=== PATIENT | female | born 1945 | race Caucasian/White ===

== ENCOUNTER 2017-08-02 22:39 | Emergency (ER) | payer OTHER ==
[~2017-08-02] VITALS: Ht 162.6 cm; Wt 56.7 kg
[~2017-08-02 22:39] MED LIST: ? HTN MED; ALBU90OI INH; AMLO5 PO; ASPI325; ASPI81CH PO; ATOR20 PO; ATOR40TA PO; BENA20 PO; BENAML20/5; BENTYL20 MG PO; BLACK COHOSH; BREO ELLIPTA 11 EACH IH; BUPR150T2; CELEXA PO; CEPH500; CITA20; CITA20 PO; CLONIDINE1 EAC1 TD; CLOP75 PO; Calcium 250+D1 EACH PO; DULO60 PO; ESCI5 PO; ESOM20 PO; ESTR2; FOLI1 PO; FURO20; FURO40 PO; HYDSUL200; HYDSUL200 PO; IBUP800; LEVFLO500 PO; LISI5 PO; LOSA50 PO; MELO7.5 PO; METHOTREXATE INJ; METO100ER PO; METO50 PO; METR500 PO; METTREX2.5 PO; METTREX2.5 SQ; MULVITMINE; NITR.3SL SL; OMEP20ER PO; OXAP600 PO; OXYACE5T PO; PANT40 PO; POTCHL10ER PO; POTCHL20ER; PRED5; SPIR25 PO; SUCR1 PO; TRAACE PO; VALA500 PO; VALS80; VARE1 PO; VERA100; XELJANZ5 MG PO; [UNRECOGNIZED DRUG - OTHER]
== END 2017-08-03 00:50 | disposition home or self-care (01) ==
LOC: ER 22:39
DX: R04.0 Epistaxis (principal); I10 Essential (primary) hypertension; I25.10 Atherosclerotic heart disease of native coronary artery without angina pectoris; F32.9 Major depressive disorder, single episode, unspecified; Z88.2 Allergy status to sulfonamides; Z88.8 Allergy status to other drugs, medicaments and biological substances; Z79.899 Other long term (current) drug therapy; Z79.82 Long term (current) use of aspirin
CPT/HCPCS: 99282

== ENCOUNTER 2017-08-12 20:49 | Inpatient (IN) | payer OTHER ==
[~2017-08-12] VITALS: Ht 162.6 cm; Wt 56.4 kg
[2017-08-12 21:55] LABS: BASOPHILS ABSOLUTE AUTO 0.03 K/mm3 (0.00-0.23); BASOPHILS PERCENT AUTO 1 % (0-2); EOSINOPHILS ABSOLUTE AUTO 0.01 K/mm3 (0.00-0.68); EOSINOPHILS PERCENT AUTO 0 % (0-6); Hematocrit 28.4 % (33.0-51.0); Hemoglobin 8.8 g/dL (11.5-16.0); IMMATURE GRAN ABSOLUTE AUTO 0.01 K/mm3 (0.00-0.10); IMMATURE GRAN PERCENT AUTO 0 % (0-1); LYMPHOCYTES ABSOLUTE AUTO 1.37 K/mm3 (0.84-5.20); LYMPHOCYTES PERCENT AUTO 24 % (21-46); MONOCYTES PERCENT AUTO 20 % (4-13); Mean Corpuscular HGB 27.2 pg (26.0-34.0); Mean Corpuscular Volume 88 fL (80-100); Mean Platelet Volume 10.7 fL (9.1-12.4); NEUTROPHILS ABSOLUTE AUTO 3.11 K/mm3 (1.96-9.15); NEUTROPHILS PERCENT AUTO 55 % (41-73); Platelet Count 342 K/mm3 (150-400); RDW Standard Deviation 51.9 fL (35.1-46.3); Red Blood Cell Count 3.24 M/mm3 (3.80-5.20); White Blood Cell Count 5.63 K/mm3 (4.00-11.30)
[2017-08-12 22:10] LABS: Albumin, Blood 2.6 g/dL (3.4-5.0); Albumin/Globulin Ratio 0.6 (0.8-1.8); Bilirubin, Total 0.2 mg/dL (0.1-1.0); Bun/Creatinine Ratio 16.7 (12.0-20.0); Calcium, Blood 7.8 mg/dL (8.5-10.1); Creatinine, Blood 1.02 mg/dL (0.40-1.00); Globulin, Blood 4.4 g/dL (2.2-4.0); Potassium, Blood 3.4 mmol/L (3.5-5.5)
[2017-08-12 23:24] LABS: Influenza A Negative (NEGATIVE); Influenza B Negative (NEGATIVE)
[2017-08-12 23:25] LABS: Source, Urine Clean Catch
[2017-08-12 23:27] LABS: Blood, Urine 2+ (Neg); Glucose Qualitative, Urine Neg (Neg); Ketones, Urine 1+ (Neg); Leukocyte Esterase, Urine 2+ (Neg); Nitrite, Urine Pos (Neg); Protein, Urine 3+ (Neg); Specific Gravity, Urine 1.025 (1.003-1.022); Urobilinogen, Urine 2+ (Normal)
[2017-08-12 23:42] LABS: Appearance, Urine Cloudy (Clear); Bilirubin, Urine 1+ (Neg); Color, Urine Amber (P-Yellow)
[2017-08-12 23:44] LABS: Amorphous Light (0-Heavy); Bacteria Many /hpf; Mucus Light (0-Heavy); Squamous Epithelial Cells Few /hpf (Few); White Blood Cells, Urine 25-50 /hpf (0-5)
[2017-08-13 00:18] LABS: International Normalized Ratio 1.09; Prothrombin Time Results 11.4 Sec (9.7-11.5)
[2017-08-13 06:28] LABS: Hematocrit 28.1 % (33.0-51.0); Hemoglobin 8.7 g/dL (11.5-16.0)
[2017-08-14 04:29] LABS: BASOPHILS ABSOLUTE AUTO 0.02 K/mm3 (0.00-0.23); BASOPHILS PERCENT AUTO 0 % (0-2); EOSINOPHILS ABSOLUTE AUTO 0.02 K/mm3 (0.00-0.68); EOSINOPHILS PERCENT AUTO 0 % (0-6); Hematocrit 28.2 % (33.0-51.0); Hemoglobin 8.6 g/dL (11.5-16.0); IMMATURE GRAN ABSOLUTE AUTO 0.01 K/mm3 (0.00-0.10); IMMATURE GRAN PERCENT AUTO 0 % (0-1); LYMPHOCYTES ABSOLUTE AUTO 1.87 K/mm3 (0.84-5.20); LYMPHOCYTES PERCENT AUTO 39 % (21-46); MONOCYTES PERCENT AUTO 12 % (4-13); Mean Corpuscular HGB 27.3 pg (26.0-34.0); Mean Corpuscular HGB Conc 30.5 g/dL (31.5-36.5); Mean Corpuscular Volume 90 fL (80-100); Mean Platelet Volume 10.2 fL (9.1-12.4); NEUTROPHILS ABSOLUTE AUTO 2.32 K/mm3 (1.96-9.15); NEUTROPHILS PERCENT AUTO 48 % (41-73); Platelet Count 308 K/mm3 (150-400); RDW Coefficient Variation 16.2 % (11.7-14.2); RDW Standard Deviation 53.1 fL (35.1-46.3); Red Blood Cell Count 3.15 M/mm3 (3.80-5.20); White Blood Cell Count 4.84 K/mm3 (4.00-11.30)
[2017-08-14 09:15] LABS: Percent Saturation 5.6 % (15.0-50.0)
[2017-08-14 13:16] LABS: Hematocrit 26.7 % (33.0-51.0)
[2017-08-14] MEDS ORDERED: DULERA 200 MCG/13 GM INH (14:38)
[2017-08-14] MEDS ORDERED: OLAN7.5 PO (14:39)
[2017-08-14] MEDS ORDERED: SERT100 PO (14:39)
== END 2017-08-14 15:20 | disposition home or self-care (01) | DRG 812 ==
LOC: ER 20:49 → ERHOLD 20:50 → PCU 08-13 05:39 → ERHOLD 08-13 15:05 → PCU 08-13 15:05
PROVIDERS: Emergency Medicine; Family Medicine; Hospitalist; Internal Medicine Gastroenterology
DX: D62 Acute posthemorrhagic anemia (principal); J44.9 Chronic obstructive pulmonary disease, unspecified; E78.5 Hyperlipidemia, unspecified; N39.0 Urinary tract infection, site not specified; F17.200 Nicotine dependence, unspecified, uncomplicated; F32.9 Major depressive disorder, single episode, unspecified; I10 Essential (primary) hypertension; I25.2 Old myocardial infarction; R04.0 Epistaxis; M06.9 Rheumatoid arthritis, unspecified; I25.10 Atherosclerotic heart disease of native coronary artery without angina pectoris; G89.4 Chronic pain syndrome; Z79.899 Other long term (current) drug therapy; Z79.82 Long term (current) use of aspirin; Z96.651 Presence of right artificial knee joint; Z95.5 Presence of coronary angioplasty implant and graft; Z85.828 Personal history of other malignant neoplasm of skin; Z88.2 Allergy status to sulfonamides; Z88.8 Allergy status to other drugs, medicaments and biological substances; Z91.048 Other nonmedicinal substance allergy status
CPT/HCPCS: 36415; 71046; 80053; 81001; 82272; 82728; 83540; 83550; 85014; 85018; 85025; 85610; 85730; 86850; 86900; 86901; 86920; 87077; 87086; 87186; 87804; 93005; 93010; 94640; 94760; 96360; 96361; 99285; J1956; J7030

== ENCOUNTER 2017-10-12 12:45 | Emergency (ER) | payer OTHER ==
[~2017-10-12] VITALS: Ht 162.6 cm; Wt 55.8 kg
[~2017-10-12 12:45] MED LIST changes: +DULERA 200 MCG/13 GM INH; +OLAN7.5 PO; +SERT100 PO
[2017-10-12] MEDS ORDERED: BRIO INHALER (13:34)
[2017-10-12] MEDS ORDERED: CEPH500 PO (13:53)
[2017-10-12] MEDS ORDERED: DOXY100T53 PO (13:53)
== END 2017-10-12 14:04 | disposition home or self-care (01) ==
LOC: ER 12:45
DX: L02.412 Cutaneous abscess of left axilla (principal); I10 Essential (primary) hypertension; F32.9 Major depressive disorder, single episode, unspecified; I25.2 Old myocardial infarction; F17.210 Nicotine dependence, cigarettes, uncomplicated; Z88.8 Allergy status to other drugs, medicaments and biological substances; Z88.2 Allergy status to sulfonamides; Z79.899 Other long term (current) drug therapy; Z86.14 Personal history of Methicillin resistant Staphylococcus aureus infection
CPT/HCPCS: 10060; 99283

== ENCOUNTER 2018-03-08 01:26 | Inpatient (IN) | payer OTHER ==
[~2018-03-08] VITALS: Ht 162.6 cm; Wt 54.2 kg
[~2018-03-08 01:26] MED LIST changes: +BRIO INHALER; +CEPH500 PO; +DOXY100T53 PO
[2018-03-08] MEDS ORDERED: FOLI1 PO (01:47)
[2018-03-08] MEDS ORDERED: LEFL20 PO (01:48)
[2018-03-08 01:53] LABS: BASOPHILS ABSOLUTE AUTO 0.05 K/mm3 (0.00-0.23); BASOPHILS PERCENT AUTO 0 % (0-2); EOSINOPHILS PERCENT AUTO 0 % (0-6); Hematocrit 31.4 % (33.0-51.0); IMMATURE GRAN ABSOLUTE AUTO 0.15 K/mm3 (0.00-0.10); IMMATURE GRAN PERCENT AUTO 1 % (0-1); LYMPHOCYTES ABSOLUTE AUTO 0.99 K/mm3 (0.84-5.20); LYMPHOCYTES PERCENT AUTO 5 % (21-46); MONOCYTES PERCENT AUTO 7 % (4-13); Mean Corpuscular HGB 24.8 pg (26.0-34.0); Mean Corpuscular HGB Conc 31.8 g/dL (31.5-36.5); Mean Corpuscular Volume 78 fL (80-100); Mean Platelet Volume 10.2 fL (9.1-12.4); NEUTROPHILS ABSOLUTE AUTO 18.67 K/mm3 (1.96-9.15); NEUTROPHILS PERCENT AUTO 88 % (41-73); Platelet Count 420 K/mm3 (150-400); RDW Coefficient Variation 17.7 % (11.7-14.2); RDW Standard Deviation 50.3 fL (35.1-46.3); Red Blood Cell Count 4.03 M/mm3 (3.80-5.20); Source, Urine Catheter; White Blood Cell Count 21.36 K/mm3 (4.00-11.30)
[2018-03-08 01:55] LABS: Appearance, Urine Turbid (Clear); Bilirubin, Urine Neg (Neg); Blood, Urine 3+ (Neg); Color, Urine Yellow (P-Yellow); Glucose Qualitative, Urine Neg (Neg); Ketones, Urine Neg (Neg); Leukocyte Esterase, Urine 3+ (Neg); Nitrite, Urine Neg (Neg); Protein, Urine 3+ (Neg); Urobilinogen, Urine NORM (Normal)
[2018-03-08 02:01] LABS: Bacteria Many /hpf; Red Blood Cells, Urine 0-2 /hpf (0-2); Squamous Epithelial Cells Many /hpf (Few); White Blood Cells, Urine TNTC /hpf (0-5)
[2018-03-08 02:09] LABS: Alanine Aminotransfer (ALT/SGP 12 U/L (12-78); Albumin, Blood 2.5 g/dL (3.4-5.0); Albumin/Globulin Ratio 0.5 (0.8-1.8); Alk Phos 106 U/L (50-136); Anion Gap 7 mmol/L (6-16); Aspartate Aminotrans (AST/SGOT 9 U/L (12-37); Bilirubin, Total 0.3 mg/dL (0.1-1.0); Blood Urea Nitrogen 14 mg/dL (8-24); Bun/Creatinine Ratio 20.6 (12.0-20.0); CO2, Blood 27 mmol/L (21-32); Calcium, Blood 8.1 mg/dL (8.5-10.1); Chloride, Blood 103 mmol/L (98-108); Creatinine, Blood 0.68 mg/dL (0.40-1.00); Globulin, Blood 5.2 g/dL (2.2-4.0); Glomerular Filtration Rate >60 (60-); Glucose, Blood 164 mg/dL (70-99); Potassium, Blood 3.1 mmol/L (3.5-5.5); Sodium, Blood 137 mmol/L (136-145); Total Protein, Blood 7.7 g/dL (6.4-8.2)
[2018-03-08 15:27] LABS: Anion Gap 6 mmol/L (6-16); Blood Urea Nitrogen 14 mg/dL (8-24); Bun/Creatinine Ratio 14.8 (12.0-20.0); CO2, Blood 26 mmol/L (21-32); Calcium, Blood 8.2 mg/dL (8.5-10.1); Chloride, Blood 111 mmol/L (98-108); Creatinine, Blood 0.95 mg/dL (0.40-1.00); Glomerular Filtration Rate >60 (60-); Glucose, Blood 109 mg/dL (70-99); Potassium, Blood 3.9 mmol/L (3.5-5.5); Sodium, Blood 143 mmol/L (136-145)
[2018-03-09 04:29] LABS: BASOPHILS ABSOLUTE AUTO 0.05 K/mm3 (0.00-0.23); BASOPHILS PERCENT AUTO 1 % (0-2); EOSINOPHILS ABSOLUTE AUTO 0.09 K/mm3 (0.00-0.68); EOSINOPHILS PERCENT AUTO 1 % (0-6); Hematocrit 29.9 % (33.0-51.0); IMMATURE GRAN ABSOLUTE AUTO 0.03 K/mm3 (0.00-0.10); IMMATURE GRAN PERCENT AUTO 0 % (0-1); LYMPHOCYTES ABSOLUTE AUTO 2.21 K/mm3 (0.84-5.20); LYMPHOCYTES PERCENT AUTO 22 % (21-46); MONOCYTES ABSOLUTE AUTO 1.13 K/mm3 (0.16-1.47); MONOCYTES PERCENT AUTO 11 % (4-13); Mean Corpuscular HGB 23.8 pg (26.0-34.0); Mean Corpuscular HGB Conc 30.1 g/dL (31.5-36.5); Mean Corpuscular Volume 79 fL (80-100); Mean Platelet Volume 10.2 fL (9.1-12.4); NEUTROPHILS ABSOLUTE AUTO 6.63 K/mm3 (1.96-9.15); NEUTROPHILS PERCENT AUTO 65 % (41-73); Platelet Count 373 K/mm3 (150-400); RDW Standard Deviation 52.5 fL (35.1-46.3); Red Blood Cell Count 3.78 M/mm3 (3.80-5.20); White Blood Cell Count 10.14 K/mm3 (4.00-11.30)
[2018-03-09 04:46] LABS: Anion Gap 6 mmol/L (6-16); Blood Urea Nitrogen 13 mg/dL (8-24); Bun/Creatinine Ratio 17.4 (12.0-20.0); CO2, Blood 25 mmol/L (21-32); Chloride, Blood 113 mmol/L (98-108); Creatinine, Blood 0.75 mg/dL (0.40-1.00); Glomerular Filtration Rate >60 (60-); Glucose, Blood 96 mg/dL (70-99); Potassium, Blood 4.3 mmol/L (3.5-5.5); Sodium, Blood 144 mmol/L (136-145)
[2018-03-12] MEDS ORDERED: LEVFLO500 PO (15:31)
[2018-03-12] MEDS ORDERED: CLON.3TP TOP (15:35)
== END 2018-03-12 16:39 | disposition home or self-care (01) | DRG 690 ==
LOC: DELPENDDIS → ER 01:26 → MEDS 02:32 → ENPENDDIS 03-11 03:50 → EDPENDDIS 03-11 03:50 → MEDS 03-11 06:47 → ENPENDDIS 03-12 12:33 → MEDS 03-12 16:39
PROVIDERS: Emergency Medicine; Family Medicine
DX: N39.0 Urinary tract infection, site not specified (principal); I10 Essential (primary) hypertension; M06.9 Rheumatoid arthritis, unspecified; I25.10 Atherosclerotic heart disease of native coronary artery without angina pectoris; Z95.5 Presence of coronary angioplasty implant and graft; I25.2 Old myocardial infarction; Z96.651 Presence of right artificial knee joint; E87.6 Hypokalemia; J44.9 Chronic obstructive pulmonary disease, unspecified; D64.9 Anemia, unspecified; F32.9 Major depressive disorder, single episode, unspecified
CPT/HCPCS: 36415; 51701; 80048; 80053; 81001; 83605; 85025; 87040; 87081; 87086; 93005; 93010; 94640; 94760; 96365; 99285-25; J0696; J1650; J1956; J3480; J7030

== ENCOUNTER 2018-11-24 14:32 | Emergency (ER) | payer OTHER ==
[~2018-11-24] VITALS: Ht 162.6 cm; Wt 52.6 kg
[~2018-11-24 14:32] MED LIST changes: +CLON.3TP TOP; +LEFL20 PO
[2018-11-24 15:42] LABS: BASOPHILS ABSOLUTE AUTO 0.05 K/mm3 (0.00-0.23); BASOPHILS PERCENT AUTO 1 % (0-2); EOSINOPHILS ABSOLUTE AUTO 0.12 K/mm3 (0.00-0.68); EOSINOPHILS PERCENT AUTO 2 % (0-6); Hematocrit 36.4 % (33.0-51.0); Hemoglobin 10.8 g/dL (11.5-16.0); IMMATURE GRAN ABSOLUTE AUTO 0.03 K/mm3 (0.00-0.10); IMMATURE GRAN PERCENT AUTO 0 % (0-1); LYMPHOCYTES ABSOLUTE AUTO 1.94 K/mm3 (0.84-5.20); LYMPHOCYTES PERCENT AUTO 24 % (21-46); MONOCYTES ABSOLUTE AUTO 0.75 K/mm3 (0.16-1.47); MONOCYTES PERCENT AUTO 9 % (4-13); Mean Corpuscular HGB 25.6 pg (26.0-34.0); Mean Corpuscular HGB Conc 29.7 g/dL (31.5-36.5); Mean Corpuscular Volume 86 fL (80-100); Mean Platelet Volume 11.8 fL (9.1-12.4); NEUTROPHILS ABSOLUTE AUTO 5.22 K/mm3 (1.96-9.15); NEUTROPHILS PERCENT AUTO 64 % (41-73); Platelet Count 362 K/mm3 (150-400); RDW Coefficient Variation 17.5 % (11.7-14.2); RDW Standard Deviation 55.1 fL (35.1-46.3); Red Blood Cell Count 4.22 M/mm3 (3.80-5.20); White Blood Cell Count 8.11 K/mm3 (4.00-11.30)
[2018-11-24 15:54] LABS: Alanine Aminotransfer (ALT/SGP 17 U/L (12-78); Albumin, Blood 2.9 g/dL (3.4-5.0); Albumin/Globulin Ratio 0.6 (0.8-1.8); Alk Phos 145 U/L (50-136); Anion Gap 6 mmol/L (6-16); Aspartate Aminotrans (AST/SGOT 15 U/L (12-37); Bilirubin, Total 0.4 mg/dL (0.1-1.0); Blood Urea Nitrogen 22 mg/dL (8-24); Bun/Creatinine Ratio 25.6 (12.0-20.0); CO2, Blood 26 mmol/L (21-32); Calcium, Blood 8.5 mg/dL (8.5-10.1); Chloride, Blood 109 mmol/L (98-108); Creatinine, Blood 0.86 mg/dL (0.40-1.00); Globulin, Blood 4.8 g/dL (2.2-4.0); Glomerular Filtration Rate >60 (60-); Glucose, Blood 89 mg/dL (70-99); Magnesium, Blood 2.1 mg/dL (1.6-2.4); Potassium, Blood 3.7 mmol/L (3.5-5.5); Sodium, Blood 141 mmol/L (136-145); Total Protein, Blood 7.7 g/dL (6.4-8.2)
[2018-11-24 16:04] LABS: Source, Urine Catheter
[2018-11-24 16:15] LABS: Appearance, Urine Hazy (Clear); Blood, Urine Neg (Neg); Color, Urine Yellow (P-Yellow); Glucose Qualitative, Urine Neg (Neg); Ketones, Urine Neg (Neg); Leukocyte Esterase, Urine Neg (Neg); Nitrite, Urine Neg (Neg); Protein, Urine 3+ (Neg); Specific Gravity, Urine 1.025 (1.003-1.022); Urobilinogen, Urine 1+ (Normal)
[2018-11-24 16:20] LABS: Bilirubin, Urine 1+ (Neg)
[2018-11-24 16:23] LABS: Bacteria Not Seen /hpf; Red Blood Cells, Urine 0-2 /hpf (0-2); Squamous Epithelial Cells Rare /hpf (Few); White Blood Cells, Urine 0-2 /hpf (0-5)
== END 2018-11-24 18:12 | disposition home or self-care (01) ==
LOC: ER 14:32
PROVIDERS: Emergency Medicine
DX: E86.0 Dehydration (principal); E78.5 Hyperlipidemia, unspecified; F32.9 Major depressive disorder, single episode, unspecified; F17.210 Nicotine dependence, cigarettes, uncomplicated; M06.9 Rheumatoid arthritis, unspecified; J44.9 Chronic obstructive pulmonary disease, unspecified; I10 Essential (primary) hypertension; I25.10 Atherosclerotic heart disease of native coronary artery without angina pectoris; K27.9 Peptic ulcer, site unspecified, unspecified as acute or chronic, without hemorrhage or perforation
CPT/HCPCS: 36415; 51701; 71045; 80053; 81001; 83735; 85025; 93005; 93010; 96360-59; 99284-25; J7030

== ENCOUNTER 2018-12-17 14:11 | Inpatient (IN) | payer OTHER ==
[~2018-12-17] VITALS: Ht 177.8 cm; Wt 54.4 kg
[2018-12-17] MEDS ORDERED: CLON.1 PO (14:37)
[2018-12-17] MEDS ORDERED: ATOR20 PO (14:37)
[2018-12-17] MEDS ORDERED: Ferrous Sulfat325 M2 PO (14:38)
[2018-12-17] MEDS ORDERED: FOLI1 PO (14:38)
[2018-12-17] MEDS ORDERED: ESOM20 PO (14:38)
[2018-12-17] MEDS ORDERED: Prinivil10 MG PO (14:39)
[2018-12-17] MEDS ORDERED: OLAN7.5 PO (14:39)
[2018-12-17] MEDS ORDERED: METO50ER PO (14:39)
[2018-12-17] MEDS ORDERED: LEFL20 PO (14:39)
[2018-12-17] MEDS ORDERED: SERT100 PO (14:39)
[2018-12-17] MEDS ORDERED: BREO ELLIPTA 11 EACH INH (14:40)
[2018-12-17 15:55] LABS: BASOPHILS ABSOLUTE AUTO 0.06 K/mm3 (0.00-0.23); BASOPHILS PERCENT AUTO 1 % (0-2); EOSINOPHILS ABSOLUTE AUTO 0.02 K/mm3 (0.00-0.68); EOSINOPHILS PERCENT AUTO 0 % (0-6); Hematocrit 38.6 % (33.0-51.0); Hemoglobin 11.7 g/dL (11.5-16.0); IMMATURE GRAN ABSOLUTE AUTO 0.06 K/mm3 (0.00-0.10); IMMATURE GRAN PERCENT AUTO 1 % (0-1); LYMPHOCYTES ABSOLUTE AUTO 1.11 K/mm3 (0.84-5.20); LYMPHOCYTES PERCENT AUTO 9 % (21-46); MONOCYTES ABSOLUTE AUTO 1.13 K/mm3 (0.16-1.47); MONOCYTES PERCENT AUTO 9 % (4-13); Mean Corpuscular HGB 25.9 pg (26.0-34.0); Mean Corpuscular HGB Conc 30.3 g/dL (31.5-36.5); Mean Corpuscular Volume 85 fL (80-100); Mean Platelet Volume 10.9 fL (9.1-12.4); NEUTROPHILS ABSOLUTE AUTO 10.03 K/mm3 (1.96-9.15); NEUTROPHILS PERCENT AUTO 81 % (41-73); Platelet Count 377 K/mm3 (150-400); RDW Coefficient Variation 17.4 % (11.7-14.2); RDW Standard Deviation 54.1 fL (35.1-46.3); Red Blood Cell Count 4.52 M/mm3 (3.80-5.20); White Blood Cell Count 12.41 K/mm3 (4.00-11.30)
[2018-12-17 16:09] LABS: International Normalized Ratio 1.1; Prothrombin Time Results 11.6 Sec (9.7-11.5)
[2018-12-17 16:11] LABS: Alanine Aminotransfer (ALT/SGP 16 U/L (12-78); Albumin, Blood 2.9 g/dL (3.4-5.0); Albumin/Globulin Ratio 0.6 (0.8-1.8); Alk Phos 154 U/L (50-136); Anion Gap 6 mmol/L (6-16); Aspartate Aminotrans (AST/SGOT 14 U/L (12-37); Bilirubin, Total 0.4 mg/dL (0.1-1.0); Blood Urea Nitrogen 22 mg/dL (8-24); Bun/Creatinine Ratio 24.3 (12.0-20.0); CO2, Blood 27 mmol/L (21-32); Calcium, Blood 8.6 mg/dL (8.5-10.1); Chloride, Blood 106 mmol/L (98-108); Creatinine, Blood 0.91 mg/dL (0.40-1.00); Globulin, Blood 4.9 g/dL (2.2-4.0); Glomerular Filtration Rate >60 (60-); Glucose, Blood 148 mg/dL (70-99); Potassium, Blood 3.9 mmol/L (3.5-5.5); Sodium, Blood 139 mmol/L (136-145); Total Protein, Blood 7.8 g/dL (6.4-8.2)
[2018-12-18 05:02] LABS: BASOPHILS ABSOLUTE AUTO 0.06 K/mm3 (0.00-0.23); BASOPHILS PERCENT AUTO 1 % (0-2); EOSINOPHILS ABSOLUTE AUTO 0.09 K/mm3 (0.00-0.68); EOSINOPHILS PERCENT AUTO 1 % (0-6); Hematocrit 37.1 % (33.0-51.0); Hemoglobin 11.2 g/dL (11.5-16.0); IMMATURE GRAN ABSOLUTE AUTO 0.04 K/mm3 (0.00-0.10); IMMATURE GRAN PERCENT AUTO 0 % (0-1); LYMPHOCYTES ABSOLUTE AUTO 1.64 K/mm3 (0.84-5.20); LYMPHOCYTES PERCENT AUTO 15 % (21-46); MONOCYTES ABSOLUTE AUTO 1.12 K/mm3 (0.16-1.47); MONOCYTES PERCENT AUTO 11 % (4-13); Mean Corpuscular HGB 25.7 pg (26.0-34.0); Mean Corpuscular HGB Conc 30.2 g/dL (31.5-36.5); Mean Corpuscular Volume 85 fL (80-100); NEUTROPHILS ABSOLUTE AUTO 7.73 K/mm3 (1.96-9.15); NEUTROPHILS PERCENT AUTO 72 % (41-73); Platelet Count 330 K/mm3 (150-400); RDW Coefficient Variation 17.5 % (11.7-14.2); Red Blood Cell Count 4.36 M/mm3 (3.80-5.20); White Blood Cell Count 10.68 K/mm3 (4.00-11.30)
[2018-12-18 05:23] LABS: Anion Gap 7 mmol/L (6-16); Blood Urea Nitrogen 28 mg/dL (8-24); Bun/Creatinine Ratio 31.8 (12.0-20.0); CO2, Blood 27 mmol/L (21-32); Calcium, Blood 8.8 mg/dL (8.5-10.1); Chloride, Blood 107 mmol/L (98-108); Creatinine, Blood 0.88 mg/dL (0.40-1.00); Glomerular Filtration Rate >60 (60-); Glucose, Blood 110 mg/dL (70-99); Potassium, Blood 4.1 mmol/L (3.5-5.5); Sodium, Blood 141 mmol/L (136-145)
--- NOTE | 2018-12-18 08:12 | NUR ---
SUMMARY NO ACUTE CHANGES THROUGH THE NIGHT, CIRC TO RIGHT LEG WNL, PAIN MEDICATED PER EMAR. PT REMAINS HYPERTENSIVE. MEDICATIONS GIVEN PER MD ORDERS. ATTENDS IN PLACE. SMALL BM NOTED. NPO SINCE MIDNIGHT. CALL LIGHT IN REACH. REPORT GIVEN TO DAY RN.
--- NOTE | 2018-12-18 08:41 | NUR ---
PT TRANSFERRED TO SURGERY AT 1409
--- NOTE | 2018-12-18 08:52 | NUR ---
ELEVATED BP DR. KNIGHT AWARE OF ELEAVATED BP THIS AM. PT TAKEN TO DAY SURGERY, THEY REPORTED THEY ARE MANAGING HER BP AT THIS TIME. DR. KNIGHT AWARE PT WAS TAKEN TO DAY SURGERY.
--- NOTE | 2018-12-18 08:53 | NUR ---
ORIENTATION PT'S ORIENTATION WAS ASSESSED THIS AM. SHE WAS ORIENTED TO SELF, PLACE AND FOLLOWING DIRECTIONS. SHE WAS UNAWARE WHY SHE WAS IN THE HOSPITAL. PT'S [facility] WAS CONTACTED FOR NEXT OF KIN INFORMATION. THEY WERE ABLE TO GIVE HER SISTER'S PHONE NUMBER BUT DID NOT HAVE POA PAPERS. JIMBO ARAUJO WAS NOTIFIED WHEN SHE CAME TO TAKE THE PATIENT FOR SURGERY.
--- NOTE | 2018-12-18 14:13 | NUR ---
PATIENT RETURNED FROM SURGERY AT 1200.
--- NOTE | 2018-12-18 14:16 | NUR ---
HTN PT HAS BEEN HYPERTENSIVE POST OP. SHE WAS GIVEN IV ENALAPRIL, WITH NO RESULTS. DR. KNIGHT WAS NOTIFIED. WILL GIVE HYDRALAZINE PER ORDER. PT IS ASYMPTOMATIC.
--- NOTE | 2018-12-18 15:06 | NUR ---
ELEVATED BP PT'S PB REMAINS ELEVATED BUT LESS THAN [address] KNIGHT WAS NOTIFIED. ORDER TO CHECK BP IN 1 HOUR AND GIVE HYDRALAZINE 5MG IF GREATER SBP GREATER THAN 180. WILL CONTINUE TO MONITOR.
--- NOTE | 2018-12-18 17:43 | NUR ---
SHIFT ASSESSMENT SHIFT ASSESSMENT WAS DONE BY THIS RN AT APPROXIMATELY 1215 AFTER PT RETURNED FROM SURGERY. THIS RN AGREES WITH DOCUMENTATION BY NOAH STUDENT NURSE. 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
--- NOTE | 2018-12-18 17:47 | NUR ---
SHIFT ASSESSMENT PT ADMITTED FOR R HIP FX FROM GROUND LEVEL FALL, PT IS ON BEDREST, LOW SODIUM DIET, USES ATTENDS, ATTENDS IN PLACE, PT IS POST-OP DAY 1, SURGERY WAS AT 0835 THIS MORNING, TAKES PILLS WITH WATER, PT HAD R GAMMA NAILING PROCEDURE, PAIN IS MANAGED WELL WITH TYLENOL AND FENTANYL, PT HAS BEEN HYPERTENSIVE POST-OP, 2L O2.
--- NOTE | 2018-12-18 19:36 | NUR ---
SHIFT SUMMARY PAIN HAS BEEN MINIMAL THIS SHIFT. PT AMBULATING INDEPEDENTLY. PROVINA DRESSING IN PLACE, NO DRAINAGE FROM WOUND. VSS. REPORT GIVEN TO JUDITH ARAUJO.
[2018-12-19 04:16] LABS: BASOPHILS ABSOLUTE AUTO 0.05 K/mm3 (0.00-0.23); BASOPHILS PERCENT AUTO 0 % (0-2); EOSINOPHILS ABSOLUTE AUTO 0.08 K/mm3 (0.00-0.68); EOSINOPHILS PERCENT AUTO 1 % (0-6); Hematocrit 32.8 % (33.0-51.0); IMMATURE GRAN ABSOLUTE AUTO 0.05 K/mm3 (0.00-0.10); IMMATURE GRAN PERCENT AUTO 0 % (0-1); LYMPHOCYTES ABSOLUTE AUTO 1.98 K/mm3 (0.84-5.20); LYMPHOCYTES PERCENT AUTO 15 % (21-46); MONOCYTES ABSOLUTE AUTO 1.41 K/mm3 (0.16-1.47); MONOCYTES PERCENT AUTO 11 % (4-13); Mean Corpuscular HGB 25.8 pg (26.0-34.0); Mean Corpuscular HGB Conc 30.5 g/dL (31.5-36.5); Mean Corpuscular Volume 85 fL (80-100); NEUTROPHILS ABSOLUTE AUTO 9.35 K/mm3 (1.96-9.15); NEUTROPHILS PERCENT AUTO 72 % (41-73); Platelet Count 316 K/mm3 (150-400); RDW Coefficient Variation 17.5 % (11.7-14.2); RDW Standard Deviation 53.5 fL (35.1-46.3); Red Blood Cell Count 3.88 M/mm3 (3.80-5.20); White Blood Cell Count 12.92 K/mm3 (4.00-11.30)
[2018-12-19 04:39] LABS: Alanine Aminotransfer (ALT/SGP 14 U/L (12-78); Albumin, Blood 2.5 g/dL (3.4-5.0); Albumin/Globulin Ratio 0.6 (0.8-1.8); Alk Phos 123 U/L (50-136); Anion Gap 8 mmol/L (6-16); Aspartate Aminotrans (AST/SGOT 14 U/L (12-37); Bilirubin, Total 0.4 mg/dL (0.1-1.0); Blood Urea Nitrogen 20 mg/dL (8-24); Bun/Creatinine Ratio 28.9 (12.0-20.0); CO2, Blood 25 mmol/L (21-32); Calcium, Blood 8.4 mg/dL (8.5-10.1); Chloride, Blood 106 mmol/L (98-108); Creatinine, Blood 0.69 mg/dL (0.40-1.00); Globulin, Blood 4.4 g/dL (2.2-4.0); Glomerular Filtration Rate >60 (60-); Glucose, Blood 127 mg/dL (70-99); Potassium, Blood 3.6 mmol/L (3.5-5.5); Sodium, Blood 139 mmol/L (136-145); Total Protein, Blood 6.9 g/dL (6.4-8.2)
--- NOTE | 2018-12-19 05:26 | NUR ---
NOTIFIED DR. KNIGHT ABOUT PTS HTN THIS AM, ORDERED TO GIVE MORNING BP MEDS NOW AND ADD A ONCE DAILY 5MG AMLODIPINE TO HER MED LIST.
--- NOTE | 2018-12-19 06:44 | NUR ---
SPOKE W/ DR. KNIGHT ABOUT PT'S HTN, BP HAS NOT IMPROVED WITH PO MEDS. ORDERS FOR PRN HYDRALAZINE GIVEN, WILL ADMINISTER.
--- NOTE | 2018-12-19 07:20 | NUR ---
SHIFT SUMMARY PT IS POD 1 RIGHT HIP REPAIR. PT HAS HX DEMENTIA, HAS DIFFICULTY FOLLOWING DIRECTIONS OR ANSWERING QUESTIONS. SHE HAS NOT BEEN OOB YET. ATTENDS IN PLACE, PT WAS INCONT OF BLADDER. SHE WAS HYPERTENSIVE OVERNIGHT, MEDICATED PER MD ORDERS. DOC WILL ADJUST HER MEDICATIONS TODAY. REPORT PASSED TO ONCOMING SHIFT.
--- NOTE | 2018-12-19 17:58 | NUR ---
SUMMARY POD #1 PT HAS DONE WELL THROUGH THE DAY. DRSG REMAINS C/D/I. CIRC WNL. PT STOOD AT THE BEDSIDE WITH PHYSICAL THERAPY. PT DENIES PAIN AT REST. PAIN MEDICATED WITH TYLENOL X1. PT HAS BEEN ALERT AND ORIENTED THROUGH THE DAY. SHE HAS BEEN ABLE TO FEED HERSELF WITH ASSISTANCE OF SETTING UP HER TRAY. BP HAS BEEN WNL. ATTENDS CHANGED PRN. VOIDING WNL. CALL LIGHT IN REACH, CALLS APPROPRIATLY.
--- NOTE | 2018-12-20 04:59 | NUR ---
SHIFT SUMMARY PT IS POD #2 R HIP FX REPAIR. PT HAS NOT BEEN OUT OF BED THIS SHIFT, UP IN CHAIR WITH PHYSICAL THERAPY DURING THE DAY. BP TRENDING HYPER THIS SHIFT, MEDICATED PER ORDERS WITH BP REDUCED. 02 SATS >90% ON RA. PT HAS HX OF DEMENTIA, RESPONDS TO YES OR NO QUESTIONS. PT DENIED PAIN, N/V THIS SHIFT. PT IS INCONTINENT OF BOWEL AND BLADDER, 2 INCONTINENT VOIDS THIS SHIFT USING ATTENDS.
--- NOTE | 2018-12-20 07:54 | NUR ---
NOTIFIED DR. KNIGHT OF PT'S HIGH BP THIS AM, CAME DOWN WITH HYDRALAZINE.
--- NOTE | 2018-12-20 17:24 | NUR ---
SHIFT SUMMARY PT POD2 R-HIP FX REPAIR. PT TAKING 2 TYLENOL IN AM FOR PAIN. PT DENIES PAIN DURING SHIFT. PT AMBULATING TO RESTROOM WITH 2 ASSISTS, GAIT BELTH AND FWW. A/O TODAY, FEEDS SELF WITH SET UP. POSITIVE AFFECT. PLAN IS TO DC TO SNF TOMORROW. DRESSING CHANGED ON SURGICAL SITE, C/D/I.
--- NOTE | 2018-12-20 18:44 | NUR ---
DISCHARGE PT LEFT VIA WHEELCHAIR WITH FAMILY AT 1835 . DISCHARGE INFORMATION GONE OVER WITH FAMILY AND PATIENT. VERBALIZED UNDERSTANDING.
--- NOTE | 2018-12-21 05:27 | NUR ---
SHIFT SUMMARY: PT POD #3 FOR RIGHT HIP REPAIR. A&O TO SELF AND SURROUNDINGS. SLOW TO RESPOND. BED ALARM ON FOR SAFETY. BP REMAINS ELEVATED. GIVEN HYDRALAZINE. PT GIVEN TYLENOL FOR PAIN PER EMAR. AQUACEL DRESSINGS CDI. PT DENIES N/V. VOIDING IN ATTENDS. ATTEMPTED TO GET PT OUT OF BED TO BEDSIDE COMMODE W/FWW + 2 ASSIST. UNSUCCESSFUL PT FELT VERY WEAK. PLAN FOR PT TO DISCHARGE TO [facility] TODAY.
--- NOTE | 2018-12-21 10:49 | NUR ---
DISCHARGE PT LEFT VIA WHEELCHAIR AT 1022. PAPERWORK GIVEN TO BENEFITS SALES CONSULTANT. PERSONAL EFFECTS WITH PATIENT. BOTH IVS REMOVED, CATHETER TIPS INTACT. REPORT GIVEN TO [facility]IO AT THE [facility]ICAL [facility], GIVEN MEDICAL HISTORY, CARDIAC HISTORY INCLUDING RECENT MEDICATION ADJUSTMENTS, TRANSFER STATUS, PAIN MANAGEMENT, AND URINARY AND BOWEL HISTORY, DIET STATUS, AND SURGICAL SITE CARE INSTRUCTIONS. PT AMBULATED TO BATHROOM BEFORE LEAVING FOR THE MEDICAL CENTER. PT ALERT AND ORIENTED, POSITIVE AFFECT. LAST BP 134/73
== END 2018-12-21 10:20 | DRG 481 ==
LOC: ER 14:11 → SURS 17:21
PROVIDERS: Orthopaedic Surgery; Physician Assistant; ADMIT Family Medicine
PROC: 0QS Lower Bones, Reposition (ICD-10-PCS; principal; 2018-12-18 09:00)
DX: S72.141A Displaced intertrochanteric fracture of right femur, initial encounter for closed fracture (principal); I50.22 Chronic systolic (congestive) heart failure; M06.9 Rheumatoid arthritis, unspecified; I25.10 Atherosclerotic heart disease of native coronary artery without angina pectoris; E78.5 Hyperlipidemia, unspecified; D50.9 Iron deficiency anemia, unspecified; Z96.651 Presence of right artificial knee joint; F17.210 Nicotine dependence, cigarettes, uncomplicated; J44.9 Chronic obstructive pulmonary disease, unspecified; K27.9 Peptic ulcer, site unspecified, unspecified as acute or chronic, without hemorrhage or perforation; M16.11 Unilateral primary osteoarthritis, right hip; W18.30XA Fall on same level, unspecified, initial encounter; Y93.9 Activity, unspecified; Y92.9 Unspecified place or not applicable; I08.1 Rheumatic disorders of both mitral and tricuspid valves; F03.90 Unspecified dementia, unspecified severity, without behavioral disturbance, psychotic disturbance, mood disturbance, and anxiety; Z95.5 Presence of coronary angioplasty implant and graft; I11.0 Hypertensive heart disease with heart failure
CPT/HCPCS: 36415; 71045; 73502; 80048; 80053; 85025; 85610; 86850; 86900; 86901; 93005; 93010; 94640; 94760; 97110; 97162; 97166; 97530; 97535; 99285-25; A9270-GY; C1713; C1769; J0360; J0690; J1100; J1650; J2370; J2405; J2704; J3010; J7042

== ENCOUNTER 2022-01-31 19:54 | Inpatient (IN) | payer OTHER ==
[~2022-01-31] VITALS: Ht 175.3 cm; Wt 45.4 kg
[~2022-01-31 19:54] MED LIST changes: +BREO ELLIPTA 11 EACH INH; +CLON.1 PO; +Ferrous Sulfat325 M2 PO; +METO50ER PO; +Prinivil10 MG PO
[2022-01-31] MEDS ORDERED: AMLO10 PO (20:14)
[2022-01-31 21:12] LABS: BASOPHILS ABSOLUTE AUTO 0.06 K/mm3 (0.00-0.23); BASOPHILS PERCENT AUTO 0 % (0-2); EOSINOPHILS ABSOLUTE AUTO 0.05 K/mm3 (0.00-0.68); EOSINOPHILS PERCENT AUTO 0 % (0-6); Hemoglobin 11.5 g/dL (11.5-16.0); IMMATURE GRAN ABSOLUTE AUTO 0.06 K/mm3 (0.00-0.10); IMMATURE GRAN PERCENT AUTO 0 % (0-1); LYMPHOCYTES ABSOLUTE AUTO 1.56 K/mm3 (0.84-5.20); LYMPHOCYTES PERCENT AUTO 11 % (21-46); MONOCYTES ABSOLUTE AUTO 1.35 K/mm3 (0.16-1.47); MONOCYTES PERCENT AUTO 9 % (4-13); Mean Corpuscular HGB Conc 31.1 g/dL (31.5-36.5); Mean Corpuscular Volume 93 fL (80-100); NEUTROPHILS ABSOLUTE AUTO 11.53 K/mm3 (1.96-9.15); NEUTROPHILS PERCENT AUTO 79 % (41-73); Platelet Count 350 K/mm3 (150-400); RDW Standard Deviation 51.8 fL (35.1-46.3); Red Blood Cell Count 3.97 M/mm3 (3.80-5.20); White Blood Cell Count 14.61 K/mm3 (4.00-11.30)
[2022-01-31 21:28] LABS: Albumin, Blood 2.4 g/dL (3.4-5.0); Albumin/Globulin Ratio 0.6 (0.8-1.8); Bilirubin, Total 0.2 mg/dL (0.1-1.0); Bun/Creatinine Ratio 33.7 (12.0-20.0); Calcium, Blood 8.8 mg/dL (8.5-10.1); Creatinine, Blood 0.74 mg/dL (0.40-1.00); Potassium, Blood 3.5 mmol/L (3.5-5.5); Total Protein, Blood 6.4 g/dL (6.4-8.2)
[2022-02-01 02:07] LABS: International Normalized Ratio 1.12; Prothrombin Time Results 11.7 Sec (9.7-11.5)
--- NOTE | 2022-02-01 06:07 | NUR ---
SHIFT SUMMARY PT ALERT TO SELF,LOCATION. PT RESPONDS TO YES OR NO QUESTIONS. DOES NOT ANSWER TO ALL QUESTIONS. HR SINUS TACH AT THIS TIME, PHYSICIAN NOTIFIE LISA FOR METOPROLOL 5 MG IV ONCE. BP HYPERTENSIVE, PHYSICIAN AWARE. SEE EMAR FOR ORDERS. WOUND CONSULT PLACED, ORTHO CONSULT CALLED IN. WOUND CLEANED WITH WOUND SUPERVISOR MARBLE, CALCIUM ALGINATE APPLIED AND NON-ADHERENT PAD ON TOP. PICTURES OF WOUNDS TAKEN. HEEL PROTECTORS IN PLACE. PT HAS CONTRACTURES IN BUE AND BLE. VARGAS ORDERED PER MD TO ASSIST IN WOUND HEALING. UNABLE TO SUCESSFULY PLACE VARGAS. THIS RN ATTEMPTED 3 TIMES. WILL INFORM DAYSMADISONFT RN. PT HAS SOFT TOUCH CALL LIGHT WITHIN REACH. OXYGEN SATURATION MAINTAINED ABOVE 94% ON 2 L VIA NC. WILL CONT TO MONITOR UNTIL REPORT GIVEN TO DAYSMADISONFT RN.
[2022-02-01 09:31] LABS: BASOPHILS ABSOLUTE AUTO 0.11 K/mm3 (0.00-0.23); BASOPHILS PERCENT AUTO 1 % (0-2); EOSINOPHILS ABSOLUTE AUTO 0.01 K/mm3 (0.00-0.68); EOSINOPHILS PERCENT AUTO 0 % (0-6); Hemoglobin 12.7 g/dL (11.5-16.0); IMMATURE GRAN ABSOLUTE AUTO 0.09 K/mm3 (0.00-0.10); IMMATURE GRAN PERCENT AUTO 1 % (0-1); LYMPHOCYTES ABSOLUTE AUTO 1.23 K/mm3 (0.84-5.20); LYMPHOCYTES PERCENT AUTO 6 % (21-46); MONOCYTES ABSOLUTE AUTO 1.33 K/mm3 (0.16-1.47); MONOCYTES PERCENT AUTO 7 % (4-13); Mean Corpuscular HGB 28.9 pg (26.0-34.0); Mean Corpuscular Volume 93 fL (80-100); Mean Platelet Volume 10.9 fL (9.1-12.4); NEUTROPHILS ABSOLUTE AUTO 16.96 K/mm3 (1.96-9.15); NEUTROPHILS PERCENT AUTO 86 % (41-73); Platelet Count 357 K/mm3 (150-400); RDW Standard Deviation 51.8 fL (35.1-46.3); Red Blood Cell Count 4.39 M/mm3 (3.80-5.20); White Blood Cell Count 19.73 K/mm3 (4.00-11.30)
--- NOTE | 2022-02-01 09:36 | NUR ---
CARE ASSUMPTION THIS RN ASSUMED CARE FROM VU ARAUJO AT 0700. VSS. BP HYPERTENSIVE. TELE SR 80S. PATIENT IS ALERT AND ORIENTED TO PLACE, SURROUDNINGS, AND PERSON. PATIENT UNABLE TO STATE THE MONTH AND YEAR. PATIENT IS SLOW TO RESPOND AND WILL RESPOND WITH YES OR NO, AND OCCASIONALLY CAN GET OTHER RESPONSES. PATIENT LUNG SOUNDS UPPER CLEAR AND LOWER DIM RHOCHNII. PATIENT REPORTS NO SHORTNESS OF BREATH. PATIENT REPORTS NO PAIN. PATIENT REPROTS NO CHEST PAIN/PRESSURE. CAP REFILL <3SECONDS. STRONG RADIAL PULSES AND FAINT PEDIS PULSES. NO EDEMA NOTED. PATIENT ABD IS ACTIVE NONTENDER. PATIENT HAS A LEFT BUTTOCK WOUND, PHOTOS IN CHART. THIS RN CHANGED OUT THE DRESSING ON THE WOUND THIS AM. CALCIUM AGITATE, PAD, AND MEPILEX IN PLACE. PATIENT HAS A PRESSURE SORE TO LEFT HEEL, HELL PROTECTORS IN PLACE. SKIN IS OVERAL FRAGILE. PATIENT IS DIAPHORETIC THIS AM. PATIENT IS INCONTINENT. PATIENT HAS CONTRACTURES IN UPPER AND LOWER EXTREMITIES. SEE SHIFT ASSESSMENT FOR FURTHER DETAILS. RANGE OF MOTION DONE THIS AM. REPOSITIONING EVERY TWO HOURS, AND WILL CONTINUE TO DO SO THROUGHOUT THE SHIFT. MED REC COMPLETE PER MEDICATIONS FROM PAPERWORK. THIS RN DID A BEDSIDE SWALLOW EVAL DUE TO PATIENT BEING NPO TO ASSES IF PATIENT IS ABLE TO TAKE AM MEDICATIONS. PATIENT PASSED THE BEDSIDE SWALLOW EVAL AND WAS ABLE TO TAKE MEDICATIONS IN APPLESAUCE. PATIENT STATED SHE TAKES HER MEDS AT HOME IN APPLESAUCE/PUDDING OR WITH JUICE. SOFT TOUCH CALL LIGHT WITHIN REACH AND BED IN LOWEST POSITION. THIS RN WILL CONTINUE TO DO HOURLY ROUNDING AND PROVIDE CARE. THIS RN UPDATED FAMILY MEMBER ANTHONY ON PATIENT CONDITION. PLAN OF CARE IS UP TO DATE.
[2022-02-01 09:52] LABS: Albumin, Blood 2.6 g/dL (3.4-5.0); Albumin/Globulin Ratio 0.6 (0.8-1.8); Bilirubin, Total 0.3 mg/dL (0.1-1.0); Bun/Creatinine Ratio 34.4 (12.0-20.0); Calcium, Blood 8.7 mg/dL (8.5-10.1); Creatinine, Blood 0.52 mg/dL (0.40-1.00); Globulin, Blood 4.5 g/dL (2.2-4.0); Potassium, Blood 3.3 mmol/L (3.5-5.5); Total Protein, Blood 7.1 g/dL (6.4-8.2)
--- NOTE | 2022-02-01 10:29 | NUR ---
UPDATE MD AMADO IN TO SEE PATIENT THIS AM. DISCUSSED THE PLAN OF CARE WITH THE PATIENT. AWAITING ORTHI CONSULT, IT WAS CALLED INTO ANSWERING SERVICE. PATIENT STATUS CHANGED TO SURGICAL WITH TELE. STAT LAB CULTURES ORDER.
--- NOTE | 2022-02-01 14:46 | NUR ---
UPDATE PATIENT HAD A BEDSIDE I&D DONE BY MD BRASHER. PATIENT HAS A WOUND VAC NOW IN PLACE THAT IS TO BE CHAGEDN THURSDAY, THURSDAY, AND THURSDAY PER MD ORDER. WOUND CONSULT IS ALREADY IN. WOUND CULTURES SENT TO LAB. NEW PICTURES POST I&D ARE IN THE CHART. THIS RN CALLED HER SISTER, WHO IS EVELYN EDMONDS TO GIVE UPDATE POST I&D SINCE WE RECEIVED VERBAL CONSENT FROM HER SISTER TO DO IT. EVELYN WOULD LIKE DAILY UPDATES ON HOW HER SISTER IS DOING. UPDATE GIVEN TO CAREGIVER ANTHONY. PATIENT REPOSITIONED EVERY TWO HOURS AND SOFT TOUCH CALL LIGHT WITHIN REACH. THIS RN GAVE REPORT TO QUALITY REP WHO IS GOING TO ASSUME CARE DUE TO PATIENT BEING SURGICAL STATUS WITH TELE. NO ACUTE CHANGES THIS SHIFT. ALL PERSONAL BELONGINGS GATHERED AND WITH PATIENT. WILL TRANSFER PATIENT TO NEW ROOM OVER IN SURGICAL.
--- NOTE | 2022-02-01 15:07 | NUR ---
PT TRANSFERRED VIA BE TO ROOM 210. REPORT RECIEVED FROM GAYLE PASCUAL. PT WITH TELE IN PLACE, NSR AT 91. WOUND VAC IN PLACE TO LEFT GLUTE AND RUNNING. TOUCH CALL BUTTON WITHING REACH. NO ACUTE NEEDS OR CONCERNS AT THIS TIME.
--- NOTE | 2022-02-01 17:35 | NUR ---
SHIFT SUMMARY: PT RESTING QUIETLY AT THIS TIME. PHYSICAL THERAPY SAW PT AND SIGNED OFF DUE TO PT'S CHRONIC LEVEL OF DEBILITY. RECOMMENDS THAT STAFF CONTINUE WORKING ON RANGE OF MOTION WITH PT. UTILITY MECHANIC SUPERVISOR AWARE. WOUND VAC REMAINS IN PLACE. NO ACUTE NEEDS AT THIS TIME
[2022-02-02 04:33] LABS: Hematocrit 36.5 % (33.0-51.0); Hemoglobin 11.2 g/dL (11.5-16.0); Mean Corpuscular HGB 29.5 pg (26.0-34.0); Mean Corpuscular HGB Conc 30.7 g/dL (31.5-36.5); Mean Corpuscular Volume 96 fL (80-100); Mean Platelet Volume 11.4 fL (9.1-12.4); Platelet Count 340 K/mm3 (150-400); RDW Coefficient Variation 15.1 % (11.7-14.2); RDW Standard Deviation 53.5 fL (35.1-46.3); White Blood Cell Count 15.62 K/mm3 (4.00-11.30)
[2022-02-02 04:53] LABS: Bun/Creatinine Ratio 42.1 (12.0-20.0); Calcium, Blood 8.7 mg/dL (8.5-10.1); Creatinine, Blood 0.64 mg/dL (0.40-1.00); Potassium, Blood 3.7 mmol/L (3.5-5.5)
--- NOTE | 2022-02-02 06:38 | NUR ---
SHIFT SUMMARY NO ACUTE CHANGES OVERNIGHT. VARGAS PLACED LAST NIGHT TO PROTECT WOUND VAC/DRESSING. WOUND VAC ON L GLUTEAL REGION, APPEARS TO BE INTACT AND ON SUCTION. IV ABX ADMINSTERED. VSS. AOX2, INTERMITTNETLY WONT ANSWER QUESTION AND WOULD JUST STARE. BEDBOUND. REPOSITIONED Q2. SOFT TOUCH CALL LIGHT WITHIN REACH. WILL PROVIDE REPORT TO ONCOMING NURSE.
--- NOTE | 2022-02-02 17:19 | NUR ---
SHIFT SUMMARY PATIENT RESPONDS TO YES OR NO QUESTIONS. BEDBOUND. Q2 HR TURNS. WOUND VAC TO PRESSURE ULCER ON COCCYX INTACT WITH CONTINUOUS SUCTION AND SEAL. PATIENT DENIES PAIN. FEEDING ASSISTANCE. TAKES PILLS WHOLE WITH APPLESAUCE. DRINKS WATER FROM STRAW. LINEN CHANGE AND BEDBATH COMPLETED THIS SHIFT. HEELS FLOATED ON PILLOWS. HEEL PROTECTIVE DRESSINGS IN PLACE. DISCHARGE PENDING CARE MANAGEMENT CONSULTATION.
[2022-02-02 20:42] LABS: Vancomycin, Trough 10.9 ug/mL (5.0-10.0)
--- NOTE | 2022-02-03 04:45 | NUR ---
ASSUMED CARE OF PT AT 1900. PT IS LIMITED TO YES OR NO QUESTIONS, IS A Q2H TURN AND IS UNABLE TO VERBALIZE NEEDS. HAS PRESSURE ULCER ON HEEL AND COCCYX, WOUND VAC PLACED 7/3 ON COCCYX, PUTING OUT SMALL ABOUNTS OF SEROSANG FLUID, DRESSING IS CDI. PT TAKES MEDS WHOLE IN CARRIER. IS TOLERATING DIET. HAS BED ALARM AND SOFT TOUCH CALL LIGHT FOR SAFETY. WILL CONTINUE TO MONITOR AND GIVE REPORT TO ONCOMING STAFF.
--- NOTE | 2022-02-03 15:03 | NUR ---
WOUND VAC DRESSING CHANGE COMPLETE
--- NOTE | 2022-02-03 18:08 | NUR ---
SHIFT SUMMARY PT A&OX4, VSS/RA, DAYRON PO/FULL FEED ASSIST, VARGAS PATENT & DRAINING YELLOW URINE, STAT LOCK ON, OFF FLOOR, BEDBOUND, PLEASANT/CALM AND COOPERATIVE WITH CARE, TELE NSR @ 97, SOFT TOUCH CALL LIGHT WITHIN REACH, MEDS WHOLE WITH APPLESAUCE. REPOSITION Q2, PILLOWS USED TO FLOAT EXTREMITIES. WOUND VAC CONTINUOUS SEAL/SX, DRESSING CHANGED TODAY. IV 20G RFA SL/INFUSING ABX PER EMAR. WILL REPORT TO ONCOMING NOC RN.
[2022-02-04 04:46] LABS: Hematocrit 43.6 % (33.0-51.0); Mean Corpuscular HGB 28.7 pg (26.0-34.0); Mean Corpuscular HGB Conc 29.8 g/dL (31.5-36.5); Mean Corpuscular Volume 96 fL (80-100); Mean Platelet Volume 10.5 fL (9.1-12.4); Platelet Count 334 K/mm3 (150-400); RDW Coefficient Variation 14.8 % (11.7-14.2); RDW Standard Deviation 52.7 fL (35.1-46.3); Red Blood Cell Count 4.53 M/mm3 (3.80-5.20); White Blood Cell Count 9.92 K/mm3 (4.00-11.30)
[2022-02-04 05:02] LABS: Bun/Creatinine Ratio 36.2 (12.0-20.0); Calcium, Blood 8.8 mg/dL (8.5-10.1); Creatinine, Blood 0.58 mg/dL (0.40-1.00); Potassium, Blood 3.8 mmol/L (3.5-5.5)
--- NOTE | 2022-02-04 05:20 | NUR ---
SHIFT SUMMARY NO ACUTE CHANGES. WOUND VAC TO LEFT BUTTOCK REMAINS COMPRESSED AND INTACT. REPOSITIONING Q2H. PT REPORTS OCCASSIONAL TENDERNESS TO BUTTOCK, BUT DENIES MEDICATIONS. VARGAS INTACT. ATTENDS IN PLACE. PT ALERT AND ORIENTED, BUT SLOW TO RESPOND. EASY TOUCH CALL LIGHT WITHIN REACH.
--- NOTE | 2022-02-04 16:03 | NUR ---
SHIFT SUMMARY PT A&OX1-2, PLEASANT & COOPERATIVE WITH CARE, SLOW TO RESPOND. TELE NSR 64 BPM, VSS, RA. VARGAS PATENT & DRAINING YELLOW URINE, STAT LOCK ON, OFF FLOOR. ABX INFUSING PER EMAR; 20G RAC. MEDS WHOLE WITH APPLESAUCE. DAYRON PO, FULL FEED ASSIST; ENC H20 T/O SHIFT. POD2 I&D, WOUND VAC PLACED L BUTTOCK, SEAL/SUX WNL. HEEL PROTECTORS CHANGED TODAY; SMALL ULCER LEFT HEEL NONSTICK BANDAGE UNDER HEEL PROTECTOR. REPOSITION Q2. WILL REPORT TO ONCOMING NOC RN.
[2022-02-04 20:32] LABS: Vancomycin, Trough 15.3 ug/mL (5.0-10.0)
--- NOTE | 2022-02-05 04:37 | NUR ---
SHIFT SUMMARY NO ACUTE CHANGES THIS SHIFT. PT SLEPT WELL T/O NIGHT. WOUND VAC TO LEFT BUTTOCK REMAINS COMPRESSED AND INTACT WITH SMALL SS DRAINAGE IN TUBING. REPOSITIONING Q2H. IV ABX PER ORDERS. EASY TOUCH CALL LIGHT WITHIN REACH.
--- NOTE | 2022-02-05 13:57 | NUR ---
SPOKE WITH DR. AMADO, IV MEFOXIN TO BE DC'D AND PT SWITCHED TO PO ANTIBIOTICS.
--- NOTE | 2022-02-05 18:33 | NUR ---
SUMMARY: PT IS POD4 I &D WITH WOUND VAC PLACEMENT TO L BUTTOCK. PT IS ALERT, SLOW TO RESPOND AT BASELINE. VSS, TELE WNL. PT DID WELL TODAY, DENIED NEED FOR PAIN MEDICATIONS, TURNED IN BED Q2. WOUND VAC WNL, SCANT DRAINAGE IN TUBING. PLAN IS FOR PT CAREGIVER TO VISIT TOMORROW AND WITNESS WOUND VAC DRESSING CHANGE AND ASSESS FOR HOME CARE. FOR THIS REASON, WOUND VAC WAS NOT CHANGED TODAY. NO ACUTE SAFETY CONCERNS, WILL REPORT TO NOC RN.
--- NOTE | 2022-02-06 05:25 | NUR ---
ASSUMED CARE OF PT AT 1900HRS. NO ACUTE CHANGES THIS SHIFT. PT IS ALERT, ABLE TO ANSWER YES AND NO QUESTIONS, HAS SOFT TOUCH CALL LIGHT FOR SAFETY. WOUND VAC ON L BUTTOCK IS DRAINING SCANT AMOUNTS OF SEROSANG FLUID. Q2 TURNS, VARGAS IN PLACE DRAINING TO GRAVITY. PT ABLE TO SEEP 6+ HOURS THIS SHIFT. WOUND VAC TO BE CHANGED TODAY SO CAREGIVER CAN OBSERVE PROCESS. WILL REPORT TO DAYSHIFT RN.
--- NOTE | 2022-02-06 18:18 | NUR ---
SHIFT SUMMARY NO ACUTE EVENTS THIS SHIFT, VSS. PT RESPONDS TO VERBAL STIMULUS AND RESPONDS APPROPRIATELY TO YES/NO QUESTIONS. PT ABLE TO STATE THAT SHE IS IN A HOSPITAL, HOWEVER IS AT TIMES CONFUSED AND STATES THAT SHE IS LAYING ON SOME STAIRS AND NEEDS TO BE PICKED UP. PT WILL TALK TO HERSELF AT TIMES. PT'S CAREGIVER CAME TO BEDSIDE TODAY, SPENT TIME WITH HER AND ASSISTED PATIENT WITH EATING A MEAL. PT WAS ABLE TO TOLERATE PO INTAKE TODAY. PT REPOSITIONED THROUGHOUT SHIFT. OT WORKED WITH PT WITH CAREGIVER PRESENT, SEE OT NOTE.
--- NOTE | 2022-02-07 04:13 | NUR ---
ASSUMED CARE AT 1900HRS. NO ACUTE CHANGES THIS SHIFT. PT IS ABLE TO ANSWER YES AND NO QUESTIONS, HAS A VARGAS TO VOID AND IS ALERT TO SELF, PLACE AND SITUATION. WOUND ON LEFT BUTTOCK, WOUND VAC IN PLACE. DRESSING TO BE CHANGED THURSDAY, THURSDAY AND THURSDAY. TURNED Q2H. PT RESTS BETWEEN CARES, SLEEPS 6+ HOURS. CTM AND GIVE HANDOFF REPORT FO DAY SHIFT RN.
--- NOTE | 2022-02-07 10:22 | NUR ---
WOUND VAC DRESSING CHANGE: DRESSING REMOVED AND WOUND CLEANSED AT L HIP. WOUND IS OVAL IN SHAPE WITH MEASUREMENTS OF 4 1/2 CM HEIGHT, 3 1/2 CM WIDE, 1 CM DEEP AND ABOUT 3.8 CM IN DIAMETER. NO TUNNELING NOTED. THE SOURROUNDING SKIN IS PINK AND BLANCHABLE. NO EXUDATE NOTED. PICTURE TAKEN OF WOUND AND PLACED IN PT'S CHART. WOUND THEN COVERED WITH BLACK SPONGE AND COMPRESSED WITH WOUND VAC AND APPEARS TO BE HOLDING GOOD SEAL. PER ORDER, WOUND VAC SETTINGS SET TO CONTINUOUS SUCTION AT 120 MMHG. WILL CTM.
[2022-02-07] MEDS ORDERED: DOXY100 PO (11:23)
[2022-02-07] MEDS ORDERED: LEVFLO500 PO (11:24)
[2022-02-07] MEDS ORDERED: VISBIOME 112.51 EACH PO (11:24)
[2022-02-07] MEDS ORDERED: METR500 PO (11:25)
--- NOTE | 2022-02-07 13:10 | NUR ---
DR. AMADO CALLED TO VERIFY IF VARAGS SHOULD STAY IN PLACE AT DISCHARGE. ORDER TO DC VARGAS AT THIS TIME.
--- NOTE | 2022-02-07 14:16 | NUR ---
DISCHARGE: HOSPITAL WOUND VAC REPLACED WITH HOME WOUND VAC AND IS WNL. HEEL PROTECTIVE DRESSINGS CHANGED TO BILAT HEELS. SAM CHOUDHURY'D PER ORDER AND PT PLACED IN ATTEND. TRANSPORT HERE AT 1330 AND PT TRANSFERED TO WHEELCHAIR WITH 2 MAX ASSIST, TRANSPORT GIVEN DISCHARGE FOLDER AND PT LEFT UNIT AT 1345. PT CAREGIVER ANTHONY CALLED AT ABOUT 1400 AND GIVEN DISCHARGE EDUCATION INCLUDING WOUND VAC ASSESSMENT. PT TO COME TO WOUND CENTER FOR DRESSING CHANGES EVERY THURSDAY, THURSDAY AND THURSDAY. ANTHONY VERBALIZED UNDERSTANDING.
== END 2022-02-07 14:20 | disposition home health service (06) | DRG 853 ==
LOC: ER 19:54 → SURS 23:00 → PCU 23:00 → SURS 02-01 15:18
PROVIDERS: Emergency Medicine; Internal Medicine; ADMIT Internal Medicine
PROC: 3E03329 Introduction of Other Anti-infective into Peripheral Vein, Percutaneous Approach (ICD-10-PCS; principal; 2022-01-31)
PROC: 0JB70ZZ Excision of Back Subcutaneous Tissue and Fascia, Open Approach (ICD-10-PCS; 2022-02-01)
DX: A41.9 Sepsis, unspecified organism (principal); L89.324 Pressure ulcer of left buttock, stage 4; L02.416 Cutaneous abscess of left lower limb; E87.0 Hyperosmolality and hypernatremia; I96 Gangrene, not elsewhere classified; I25.10 Atherosclerotic heart disease of native coronary artery without angina pectoris; Z66 Do not resuscitate; I10 Essential (primary) hypertension; E87.6 Hypokalemia; F03.90 Unspecified dementia, unspecified severity, without behavioral disturbance, psychotic disturbance, mood disturbance, and anxiety; M06.9 Rheumatoid arthritis, unspecified; F17.210 Nicotine dependence, cigarettes, uncomplicated; R32 Unspecified urinary incontinence; F32.A Depression, unspecified; Z96.651 Presence of right artificial knee joint; J44.9 Chronic obstructive pulmonary disease, unspecified; E78.5 Hyperlipidemia, unspecified; Z88.2 Allergy status to sulfonamides; I25.2 Old myocardial infarction; Z90.710 Acquired absence of both cervix and uterus; Z87.19 Personal history of other diseases of the digestive system; Z79.899 Other long term (current) drug therapy; Z88.0 Allergy status to penicillin; Z87.11 Personal history of peptic ulcer disease; Z88.8 Allergy status to other drugs, medicaments and biological substances; Z74.01 Bed confinement status; Z95.5 Presence of coronary angioplasty implant and graft
CPT/HCPCS: 36415; 73701; 80048; 80053; 80202; 83880; 85025; 85027; 85610; 87040; 87070; 87075; 87205; 96365-59; 96367; 96375; 97162; 97530; 99285-25; A9270; J0360; J0692; J3370; J7060; Q9967

== ENCOUNTER 2022-02-10 00:17 | Day surgery (SDC) | payer OTHER ==
[~2022-02-10 00:17] MED LIST changes: +AMLO10 PO; +DOXY100 PO; +VISBIOME 112.51 EACH PO
--- NOTE | 2022-02-10 15:27 | NUR ---
PT DID NOT BRING THERE OWN WOUND VAC SUPPLIES. WOUND VAC SUPPLIES OBTAINED FROM WOUND CENTER TODAY. SUCTION STOPPED UPON ARRIVAL. OLD WOUND DRESSING REMOVED USING ADHESIVE REMOVAL. WOUND AND SKIN CLEANSED WITH SKIN INTEGRITY CLEANSER. OUTER SKIN OILS REMOVED WITH SENSI CARE BARRIER CLEANSER. THEN OUTER SKIN PREPPED WITH BENZOIN. PRE DRAPE APPLIED. 1 PIECE OF BLACK FOAM USED AT WOUND SITE. POST DRAPE APPLIED. SUCTION TUBING APPLIED. WOUND VAC RUNNING AT 120 MM HG WITH NO EVIDENCE OF ANY LEAKING. CAREGIVER EDUCATED REGARDING TROUBLESHOOTING ANY LEAKING ALARMS. CAREGIVER VERBALIZED UNDERSTANDING.
== END 2022-02-10 15:15 | disposition home or self-care (01) ==
LOC: ATC 00:17
DX: L89.324 Pressure ulcer of left buttock, stage 4 (principal); M06.9 Rheumatoid arthritis, unspecified; I10 Essential (primary) hypertension; J44.9 Chronic obstructive pulmonary disease, unspecified; E78.5 Hyperlipidemia, unspecified; I25.2 Old myocardial infarction
CPT/HCPCS: 99214

== ENCOUNTER 2022-02-12 03:34 | Day surgery (SDC) | payer OTHER | END 2022-02-12 14:35 | disposition home or self-care (01) | LOC: ATC 03:34 | DX: L89.324 Pressure ulcer of left buttock, stage 4 (principal); E87.0 Hyperosmolality and hypernatremia; I10 Essential (primary) hypertension; J44.9 Chronic obstructive pulmonary disease, unspecified; E78.5 Hyperlipidemia, unspecified; Z88.0 Allergy status to penicillin; Z88.8 Allergy status to other drugs, medicaments and biological substances | CPT/HCPCS: 99212 ==

== ENCOUNTER 2022-02-17 08:00 | Day surgery (SDC) | payer OTHER | END 2022-02-17 23:59 | disposition home or self-care (01) | LOC: WOUND 08:00 | DX: L89.324 Pressure ulcer of left buttock, stage 4 (principal); F03.90 Unspecified dementia, unspecified severity, without behavioral disturbance, psychotic disturbance, mood disturbance, and anxiety; J44.9 Chronic obstructive pulmonary disease, unspecified; I10 Essential (primary) hypertension; Z88.0 Allergy status to penicillin; Z88.2 Allergy status to sulfonamides; Z88.8 Allergy status to other drugs, medicaments and biological substances | CPT/HCPCS: G0463 ==

== ENCOUNTER 2022-02-24 05:39 | Day surgery (SDC) | payer OTHER | END 2022-02-24 23:27 | disposition home or self-care (01) | LOC: WOUND 05:39 | DX: L89.324 Pressure ulcer of left buttock, stage 4 (principal); F03.90 Unspecified dementia, unspecified severity, without behavioral disturbance, psychotic disturbance, mood disturbance, and anxiety; Z74.01 Bed confinement status; J44.9 Chronic obstructive pulmonary disease, unspecified; I10 Essential (primary) hypertension | CPT/HCPCS: A9270 ==

== ENCOUNTER 2022-03-11 01:01 | Day surgery (SDC) | payer OTHER | END 2022-03-11 23:56 | disposition home or self-care (01) | LOC: WOUND 01:01 | DX: L89.324 Pressure ulcer of left buttock, stage 4 (principal); F03.90 Unspecified dementia, unspecified severity, without behavioral disturbance, psychotic disturbance, mood disturbance, and anxiety; Z74.01 Bed confinement status | CPT/HCPCS: A9270 ==

== ENCOUNTER 2022-03-16 14:57 | Emergency (ER) | payer OTHER ==
[~2022-03-16] VITALS: Ht 167.6 cm; Wt 52.2 kg
[2022-03-16 15:30] LABS: BASOPHILS ABSOLUTE AUTO 0.08 K/mm3 (0.00-0.23); BASOPHILS PERCENT AUTO 0 % (0-2); EOSINOPHILS PERCENT AUTO 0 % (0-6); Hemoglobin 10.7 g/dL (11.5-16.0); IMMATURE GRAN ABSOLUTE AUTO 0.19 K/mm3 (0.00-0.10); IMMATURE GRAN PERCENT AUTO 1 % (0-1); LYMPHOCYTES ABSOLUTE AUTO 0.34 K/mm3 (0.84-5.20); LYMPHOCYTES PERCENT AUTO 2 % (21-46); MONOCYTES ABSOLUTE AUTO 0.77 K/mm3 (0.16-1.47); MONOCYTES PERCENT AUTO 3 % (4-13); Mean Corpuscular HGB 29.2 pg (26.0-34.0); Mean Corpuscular HGB Conc 31.5 g/dL (31.5-36.5); Mean Corpuscular Volume 93 fL (80-100); Mean Platelet Volume 10.7 fL (9.1-12.4); NEUTROPHILS ABSOLUTE AUTO 21.25 K/mm3 (1.96-9.15); NEUTROPHILS PERCENT AUTO 94 % (41-73); Platelet Count 334 K/mm3 (150-400); RDW Coefficient Variation 14.7 % (11.7-14.2); RDW Standard Deviation 50.4 fL (35.1-46.3); Red Blood Cell Count 3.66 M/mm3 (3.80-5.20); White Blood Cell Count 22.73 K/mm3 (4.00-11.30)
[2022-03-16 15:48] LABS: Albumin, Blood 2.1 g/dL (3.4-5.0); Albumin/Globulin Ratio 0.5 (0.8-1.8); Bilirubin, Total 0.4 mg/dL (0.1-1.0); Bun/Creatinine Ratio 42.5 (12.0-20.0); Calcium, Blood 8.7 mg/dL (8.5-10.1); Creatinine, Blood 0.64 mg/dL (0.40-1.00); Globulin, Blood 4.6 g/dL (2.2-4.0); Total Protein, Blood 6.7 g/dL (6.4-8.2)
== END 2022-03-16 21:49 | disposition home or self-care (01) ==
LOC: ER 14:57
PROVIDERS: Student in an Organized Health Care Education/Training Program
DX: R41.82 Altered mental status, unspecified (principal); I10 Essential (primary) hypertension; J44.9 Chronic obstructive pulmonary disease, unspecified; Z88.0 Allergy status to penicillin; Z88.2 Allergy status to sulfonamides; Z88.8 Allergy status to other drugs, medicaments and biological substances; Z79.899 Other long term (current) drug therapy
CPT/HCPCS: 36415; 71045; 71260; 80053; 83605; 85025; 93005; 93010; J0696; Q9967

== ENCOUNTER 2022-04-02 03:45 | Day surgery (SDC) | payer OTHER | END 2022-04-02 22:52 | disposition home or self-care (01) | LOC: WOUND 03:45 | DX: L89.324 Pressure ulcer of left buttock, stage 4 (principal); I10 Essential (primary) hypertension; J44.9 Chronic obstructive pulmonary disease, unspecified; F03.90 Unspecified dementia, unspecified severity, without behavioral disturbance, psychotic disturbance, mood disturbance, and anxiety; Z74.01 Bed confinement status | CPT/HCPCS: A9270 ==

== ENCOUNTER → 2022-04-03 | Outpatient (CLI) | payer OTHER ==
[2022-04-03 14:10] LABS: C DIFFICILE DNA POSITIVE (Negative)
== END | disposition home or self-care (01) ==
LOC: LAB 09:40 → LAB SHORT 09:40
PROVIDERS: Family Medicine
DX: R19.7 Diarrhea, unspecified (principal)
CPT/HCPCS: 87015; 87045; 87046; 87205; 87324; 87493; 87899

== ENCOUNTER → 2022-04-09 | Outpatient (CLI) | payer OTHER | END | disposition home or self-care (01) | LOC: LAB SHORT 14:20 → LAB 14:20 | DX: L89.94 Pressure ulcer of unspecified site, stage 4 (principal) | CPT/HCPCS: 87070; 87075; 87205 ==

== ENCOUNTER 2022-04-16 07:42 | Day surgery (SDC) | payer OTHER | END 2022-04-16 23:37 | disposition home or self-care (01) | LOC: WOUND 07:42 | DX: L89.324 Pressure ulcer of left buttock, stage 4 (principal); F03.90 Unspecified dementia, unspecified severity, without behavioral disturbance, psychotic disturbance, mood disturbance, and anxiety; Z74.01 Bed confinement status; J44.9 Chronic obstructive pulmonary disease, unspecified; I10 Essential (primary) hypertension | CPT/HCPCS: A9270 ==

== ENCOUNTER 2022-05-14 04:11 | Day surgery (SDC) | payer OTHER | END 2022-05-14 22:52 | disposition home or self-care (01) | LOC: WOUND 04:11 | DX: L89.324 Pressure ulcer of left buttock, stage 4 (principal); F03.90 Unspecified dementia, unspecified severity, without behavioral disturbance, psychotic disturbance, mood disturbance, and anxiety; Z74.01 Bed confinement status; I10 Essential (primary) hypertension; J44.9 Chronic obstructive pulmonary disease, unspecified | CPT/HCPCS: G0463 ==

== ENCOUNTER → 2022-07-04 | Outpatient (CLI) | payer OTHER ==
[2022-07-04 15:52] LABS: Albumin, Blood 2.7 g/dL (3.4-5.0); Albumin/Globulin Ratio 0.5 (0.8-1.8); BASOPHILS ABSOLUTE AUTO 0.05 K/mm3 (0.00-0.23); BASOPHILS PERCENT AUTO 1 % (0-2); Bilirubin, Total 0.3 mg/dL (0.1-1.0); Bun/Creatinine Ratio 28.2 (12.0-20.0); Calcium, Blood 9.2 mg/dL (8.5-10.1); Creatinine, Blood 0.6 mg/dL (0.40-1.00); EOSINOPHILS ABSOLUTE AUTO 0.08 K/mm3 (0.00-0.68); EOSINOPHILS PERCENT AUTO 1 % (0-6); Globulin, Blood 5.1 g/dL (2.2-4.0); Hematocrit 43.3 % (33.0-51.0); Hemoglobin 13.4 g/dL (11.5-16.0); IMMATURE GRAN ABSOLUTE AUTO 0.04 K/mm3 (0.00-0.10); IMMATURE GRAN PERCENT AUTO 1 % (0-1); LYMPHOCYTES ABSOLUTE AUTO 1.67 K/mm3 (0.84-5.20); LYMPHOCYTES PERCENT AUTO 19 % (21-46); MONOCYTES ABSOLUTE AUTO 0.55 K/mm3 (0.16-1.47); MONOCYTES PERCENT AUTO 6 % (4-13); Mean Corpuscular HGB 28.2 pg (26.0-34.0); Mean Corpuscular HGB Conc 30.9 g/dL (31.5-36.5); Mean Corpuscular Volume 91 fL (80-100); Mean Platelet Volume 10.9 fL (9.1-12.4); NEUTROPHILS ABSOLUTE AUTO 6.43 K/mm3 (1.96-9.15); NEUTROPHILS PERCENT AUTO 73 % (41-73); Phosphorus, Blood 3.7 mg/dL (2.5-4.9); Platelet Count 386 K/mm3 (150-400); Potassium, Blood 4.2 mmol/L (3.5-5.5); RDW Coefficient Variation 16.2 % (11.7-14.2); Red Blood Cell Count 4.75 M/mm3 (3.80-5.20); Total Protein, Blood 7.8 g/dL (6.4-8.2); White Blood Cell Count 8.82 K/mm3 (4.00-11.30)
== END | disposition home or self-care (01) ==
LOC: LAB 14:18 → LAB SHORT 14:18
PROVIDERS: Family Medicine
DX: I10 Essential (primary) hypertension (principal); N28.9 Disorder of kidney and ureter, unspecified; J44.9 Chronic obstructive pulmonary disease, unspecified
CPT/HCPCS: 80053; 84100; 85025

== ENCOUNTER 2022-08-18 03:09 | Day surgery (SDC) | payer OTHER | END 2022-08-18 23:07 | disposition home or self-care (01) | LOC: WOUND 03:09 | DX: L89.324 Pressure ulcer of left buttock, stage 4 (principal); F03.90 Unspecified dementia, unspecified severity, without behavioral disturbance, psychotic disturbance, mood disturbance, and anxiety; J44.9 Chronic obstructive pulmonary disease, unspecified; I10 Essential (primary) hypertension; Z74.01 Bed confinement status | CPT/HCPCS: A9270 ==

== ENCOUNTER 2022-08-27 01:38 | Day surgery (SDC) | payer OTHER | END 2022-08-27 22:52 | disposition home or self-care (01) | LOC: WOUND 01:38 | DX: L89.324 Pressure ulcer of left buttock, stage 4 (principal); F03.90 Unspecified dementia, unspecified severity, without behavioral disturbance, psychotic disturbance, mood disturbance, and anxiety; Z74.01 Bed confinement status | CPT/HCPCS: A9270 ==

== ENCOUNTER 2022-09-03 00:32 | Day surgery (SDC) | payer OTHER | END 2022-09-03 23:35 | disposition home or self-care (01) | LOC: WOUND 00:32 | DX: L89.324 Pressure ulcer of left buttock, stage 4 (principal); F03.90 Unspecified dementia, unspecified severity, without behavioral disturbance, psychotic disturbance, mood disturbance, and anxiety; Z74.01 Bed confinement status | CPT/HCPCS: G0463 ==